=== PATIENT | female | born 1980 | race Caucasian/White ===

== ENCOUNTER 2023-09-11 13:29 | Outpatient (AMB) | payer OTHER, SELFPAY ==
--- NOTE | 2023-09-11 14:06 | A.SPINEOV_ITS ---
Intake Visit Reasons: LBP Intake Note: Ms. Johnson is here today c/o low back pain. Disabilities Caregiver Required: Yes Disabilities Caregiver Name: Tablet Allergies No Known Allergies Allergy (Verified 09/11/23 14:06) Assessment & Plan Assessment & Plan (1) Back pain: Code(s): M54.9 - Dorsalgia, unspecified Category: Medical Plan Dear Juan, Thank you for referring Mrs Alex Barroso to our office today. She is a very nice 42-year-old female who presents to the office today for evaluation of chronic low back pain that started about 2 years ago. It has been getting steadily worse over time. She tried physical therapy last year and went for 6-7 weeks that with no significant benefit. She does lidocaine patches, Tylenol Motrin if the pain gets really bad. She has the pain every day. It is seems to be aggravated with prolonged sitting. She will get up and move around at work just to try to relieve some of the pain and that seems to make it better. She exercises in the mornings in generally has no problem what she is doing that. She generally gets a good night's sleep unless she sleeps too long and then the pain will wake her up if she goes more than 8 hours on a weekend or so. There is no radicular pain down the legs. No cauda equina symptoms. She has no tingling or numbness. She has not had any injections, resident care technician, acupuncture etc.. She is here today to discuss an MRI that showed some mild disc degeneration. PMH: She is otherwise healthy other than some high cholesterol Social hx: She has not smoke, drink or use any recreational drugs Medications: Atorvastatin Allergies: None Physical exam: She has full strength bilateral lower extremities with normal reflexes, SI joint testing negative Imaging review: Lumbar MRI done at [facility] shows mild disc degeneration at L4-5 with a small annular tear but no evidence of any disc herniation, misalignment or severe disc disease. Impression: 42-year-old with chronic low back pain presents to the office today for evaluation of 2 years of lower lumbar pain. Her imaging to me looks more less just like some mild degeneration with nothing surgical. She did try physical therapy for awhile with no effect. I talked to her about the fact that this could be related to sitting all day at work and that the positional changes might be a better option in terms of something like a stand-up desk where she can avoid sitting for lengthy periods of time. She has not overweight, which is helpful. I encouraged her to continue to be active and exercise. She does not have any symptoms while she is exercising so I do not think that is part of the problem. I am going to send her to Dr. Byrnes to see if there is anything he can do in terms of further conservative treatment that might be able to lend some improvement to her pain. We would be happy to see her back if something changes down the road. Thank you for allowing us to care for your patient. The total time spent with this visit with this patient was 45 minutes reviewing history, physical exam, lumbar imaging review, and implementation of treatment plan or further diagnostic testing Genaro Byrne MD,PhD [facility] Orders: Referrals Physiatry Referral M54.9 - Dorsalgia, unspecified Coding Level of Care Code Est Pt Level 3 (60834) Diagnoses Back pain M54.9
== END 2023-09-11 14:58 | disposition home or self-care (01) ==
PROVIDERS: PCP Nurse Practitioner Family; Referring Provider Nurse Practitioner Family; Visit Provider Physician Assistant
DX: M54.9 Dorsalgia, unspecified (principal)
CPT/HCPCS: 99213

== ENCOUNTER → 2023-09-11 13:29 | Outpatient (BNVA) | payer OTHER, SELFPAY | PROVIDERS: PCP Nurse Practitioner Family; Visit Provider Physician Assistant ==